=== PATIENT | female | born 2000 | race Two or more races ===

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

== ENCOUNTER 2020-01-26 18:15 | Emergency (ER) | payer OTHER ==
[~2020-01-26] VITALS: Ht 152.4 cm; Wt 56.7 kg
[~2020-01-26 18:15] MED LIST changes: +ANUSOL-HC30 GM RC; +OMEPRAZOLE20 M3 ORAL; +VISTARIL50 MG ORAL
[2020-01-26] MEDS ORDERED: Excedrin Migraine tab ORAL ONE (18:30)
[2020-01-26] MEDS ORDERED: DiphenhydrAMINE 50mg/ml Inj IVP ONE (18:30)
[2020-01-26 18:37] LABS: APPEARANCE,URINE CLEAR; BILIRUBIN, URINE NEGATIVE (NEGATIVE); COLOR,URINE PALE YELLOW; GLUCOSE, URINE (UA) NEGATIVE (NEGATIVE); KETONES,URINE NEGATIVE (NEGATIVE); LEUKOCYTE ESTERASE ,URINE 2+ (NEGATIVE); NITRITE,URINE NEGATIVE (NEGATIVE); PH,URINE 6 (4.5-8.0); PROTEIN,URINE NEGATIVE (NEGATIVE); UROBILINOGEN,URINE NORMAL MG/DL (0.0-1.0)
[2020-01-26 18:47] VITALS: BP 106/65
[2020-01-26 18:50] LABS: BASOPHILS % (AUTO) 1.5 % (0.0-2.0); EOSINOPHILS % (AUTO) 1.4 % (0.0-3.0); HEMATOCRIT 39.6 % (37.0-47.0); HEMOGLOBIN 13.3 G/DL (12.0-16.0); LYMPHOCYTES % (AUTO) 36.9 % (20.0-45.0); MEAN CORPUSCULAR VOLUME 89 FL (80-99); MONOCYTES % (AUTO) 6.7 % (1.0-10.0); NEUTROPHILS % (AUTO) 53.5 % (45.0-75.0); PLATELET COUNT 210 K/UL (150-450); RED BLOOD COUNT 4.45 M/UL (4.20-5.40); WHITE BLOOD COUNT 8.7 K/UL (4.8-10.8)
[2020-01-26 19:03] LABS: ANION GAP 10 mmol/L (5-15); BLOOD UREA NITROGEN 18 mg/dL (7-18); CALCIUM 8.8 MG/DL (8.5-10.1); CARBON DIOXIDE 27 MMOL/L (21-32); CHLORIDE 103 MMOL/L (98-107); SODIUM 140 MMOL/L (136-145)
[2020-01-26 19:06] LABS: ALANINE AMINOTRANSFERASE 23 U/L (12-78); ALBUMIN 3.9 G/DL (3.4-5.0); ALBUMIN/GLOBULIN RATIO 0.9 (1.0-2.7); ALKALINE PHOSPHATASE 73 U/L (46-116); ASPARTATE AMINO TRANSFERASE 19 U/L (15-37); BILIRUBIN,TOTAL 0.9 MG/DL (0.2-1.0)
[2020-01-26] MEDS ORDERED: Ketorolac 30mg Inj IV ONE (19:30)
--- NOTE | 2020-01-26 20:26 | Emergency Room Report ---
History of Present Illness General Chief Complaint: Headache Source: Patient Present Illness HPI 19-year-old female presents complaining of headache for the last 2 days. Points to the top of her head and states she has sharp pain, 8 out of 10, nonradiating. Denies photophobia or blurry vision. Denies nausea or vomiting. Denies neck stiffness. Denies any fall or injury. Took Tylenol and Aleve without relief. No other aggravating relieving factors. Denies any other associated symptoms Allergies: Coded Allergies: METOCLOPRAMIDE (Verified Allergy, Unknown, 03/20/19) PROCHLORPERAZINE (Verified Allergy, Unknown, 11/28/19) COVID-19 Screening Contact w/high risk pt: No Recent Travel to affected area: No Experienced COVID-19 symptoms?: No COVID-19 symptoms experienced: Shortness of Breath COVID-19 Testing performed OCCUPATIONAL MEDICINE PHYSICIAN: No Patient History Past Medical History: none Past Surgical History: none Pertinent Family History: none Social History: Denies: smoking, alcohol use, drug use Last Menstrual Period: 1 year ago Now: No : 1 Para: 1 Immunizations: UTD Reviewed Nursing Documentation: PMH: Agreed; PSxH: Agreed Nursing Documentation-PMH Past Medical History: No Stated History Hx Cardiac Problems: No Hx Gastrointestinal Problems: Yes - Kidney infection Hx Neurological Problems: No Review of Systems All Other Systems: negative except mentioned in HPI Physical Exam Vital Signs Date Time Temp Pulse Resp B/P (MAP) Pulse Ox O2 Delivery O2 Flow Rate FiO2 01/26/20 18:17 98.2 73 19 106/65 (79) 100 Room Air Sp02 EP Interpretation: reviewed, normal General Appearance: no apparent distress, alert, GCS 15, non-toxic Head: normocephalic, atraumatic Eyes: bilateral eye normal inspection, bilateral eye PERRL ENT: hearing grossly normal, normal pharynx, no angioedema, normal voice Neck: full range of motion, supple, no meningismus, supple/symm/no masses Respiratory: chest non-tender, lungs clear, normal breath sounds, speaking full sentences Cardiovascular #1: regular rate, rhythm, no edema Cardiovascular #2: 2+ carotid (R), 2+ carotid (L), 2+ radial (R), 2+ radial (L) , 2+ dorsalis pedis (R), 2+ dorsalis pedis (L) Gastrointestinal: normal bowel sounds, non tender, soft, non-distended, no guarding, no rebound Rectal: deferred Genitourinary: normal inspection, no CVA tenderness Musculoskeletal: back normal, normal range of motion, gait/station normal, non- tender Neurologic: alert, motor strength/tone normal, oriented x3, sensory intact, responsive, speech normal Psychiatric: judgement/insight normal, memory normal, mood/affect normal, no suicidal/homicidal ideation Reflexes: 3+ bicep (R), 3+ bicep (L), 3+ tricep (R), 3+ tricep (L), 3+ knee (R) , 3+ knee (L) Skin: no rash Lymphatic: no adenopathy Medical Decision Making Diagnostic Impression: Primary Impression: Headache Qualified Codes: R51 - Headache ER Course Hospital Course 19-year-old female presents to ED complaining of headaches Differential diagnoses include: tension headache, migraine, dehydration, intracranial bleed Clinical course Patient placed on stretcher. After initial history and physical I ordered labs , IV fluids, excedrin, benedryl Labs reviewed- electrolytes okay, no leukocytosis, hemoglobin/hematocrit stable , UA negative On reassessment patient continues to have pain. CT ordered. Given additional medications. CT negative. On reassessment symptoms improving. I discussed findings with patient. No focal deficits. No nuchal rigidity. No blurry vision. No nausea. Will discharge home. Patient is breast-feeding so medication options are limited. Recommend close follow-up with [facility]. I feel this is a highly complex case requiring extensive working including EKG/Rhythm strip, Xray/CT/US, Blood/urine lab work, repeat exams while in ED, and administration of strong opiates/narcotics for pain control, admission to hospital or close patient follow up. Diagnosis - headache stable and discharged to home with Rx Excedrin. f/up with PMD. return to ED if symptoms recur/worsen. Labs Test 01/26/20 18:29 01/26/20 18:39 Urine Color Pale yellow Urine Appearance Clear Urine pH 6 (4.5-8.0) Urine Specific [place] 1.015 (1.005-1.035) Urine Protein Negative (NEGATIVE) Urine Glucose (UA) Negative (NEGATIVE) Urine Ketones Negative (NEGATIVE) Urine Blood Negative (NEGATIVE) Urine Nitrite Negative (NEGATIVE) Urine Bilirubin Negative (NEGATIVE) Urine Urobilinogen Normal MG/DL (0.0-1.0) Urine Leukocyte Esterase 2+ (NEGATIVE) Urine RBC 0 /HPF (0 - 2) Urine WBC 5-10 /HPF (0 - 2) Urine Squamous Epithelial Cells Few /LPF (NONE/OCC) Urine Bacteria Few /HPF (NONE) Urine HCG, Qualitative Negative (NEGATIVE) White Blood Count 8.7 K/UL (4.8-10.8) Red Blood Count 4.45 M/UL (4.20-5.40) Hemoglobin 13.3 G/DL (12.0-16.0) Hematocrit 39.6 % (37.0-47.0) Mean Corpuscular Volume 89 FL (80-99) Mean Corpuscular Hemoglobin 29.8 PG (27.0-31.0) Mean Corpuscular Hemoglobin Concent 33.5 G/DL (32.0-36.0) Red Cell Distribution Width 12.0 % (11.6-14.8) Platelet Count 210 K/UL (150-450) Mean Platelet Volume 9.0 FL (6.5-10.1) Neutrophils (%) (Auto) 53.5 % (45.0-75.0) Lymphocytes (%) (Auto) 36.9 % (20.0-45.0) Monocytes (%) (Auto) 6.7 % (1.0-10.0) Eosinophils (%) (Auto) 1.4 % (0.0-3.0) Basophils (%) (Auto) 1.5 % (0.0-2.0) Sodium Level 140 MMOL/L (136-145) Potassium Level 4.0 MMOL/L (3.5-5.1) Chloride Level 103 MMOL/L (98-107) Carbon Dioxide Level 27 MMOL/L (21-32) Anion Gap 10 mmol/L (5-15) Blood Urea Nitrogen 18 mg/dL (7-18) Creatinine 1.0 MG/DL (0.55-1.30) Estimat Glomerular Filtration Rate > 60 mL/min (>60) Glucose Level 89 MG/DL (74-106) Calcium Level 8.8 MG/DL (8.5-10.1) Total Bilirubin 0.9 MG/DL (0.2-1.0) Aspartate Amino Transf (AST/SGOT) 19 U/L (15-37) Alanine Aminotransferase (ALT/SGPT) 23 U/L (12-78) Alkaline Phosphatase 73 U/L (46-116) Total Protein 8.1 G/DL (6.4-8.2) Albumin 3.9 G/DL (3.4-5.0) Globulin 4.2 g/dL Albumin/Globulin Ratio 0.9 (1.0-2.7) Lipase 171 U/L (73-393) CT/MRI/US Diagnostic Results CT/MRI/US Diagnostic Results : Imaging Test Ordered: CT Head Impression Procedure: CT Head no Contrast EXAM: CT Head Without Intravenous Contrast CLINICAL HISTORY: H/A TECHNIQUE: Axial computed tomography images of the head/brain without intravenous contrast. CTDI is 53 mGy and DLP is 992 mGy-cm. One or more of the following dose reduction techniques were used: automated exposure control, adjustment of the mA and/or kV according to patient size, use of iterative reconstruction technique. COMPARISON: No relevant prior studies available. FINDINGS: Brain: Unremarkable. No hemorrhage. No edema. Ventricles: Unremarkable. Bones/joints: Unremarkable. No acute fracture. Soft tissues: Unremarkable. Sinuses: Unremarkable as visualized. Mastoid air cells: Unremarkable as visualized. IMPRESSION: No acute intracranial abnormality. Last Vital Signs Date Time Temp Pulse Resp B/P (MAP) Pulse Ox O2 Delivery O2 Flow Rate FiO2 01/26/20 19:42 98.2 01/26/20 18:47 73 19 106/65 100 Room Air Status: improved Disposition: HOME, SELF-CARE Condition: Stable Scripts Aspirin/Acetaminophen/Caffeine (EXCEDRIN MIGRAINE CAPLET) 1 Each Tablet 1 EACH PO Q6HR for 7 Days, TAB Prov: Dane Fisher MD 01/26/20 Referrals: NON PHYSICIAN (PCP) Dane Fisher MD Jan 26, 2020 20:26
--- NOTE | 2020-01-26 20:30 | Diagnostic Imaging Report ---
EXAM: CT Head Without Intravenous Contrast CLINICAL HISTORY: H/A TECHNIQUE: Axial computed tomography images of the head/brain without intravenous contrast. CTDI is 53 mGy and DLP is 992 mGy-cm. One or more of the following dose reduction techniques were used: automated exposure control, adjustment of the mA and/or kV according to patient size, use of iterative reconstruction technique. COMPARISON: No relevant prior studies available. FINDINGS: Brain: Unremarkable. No hemorrhage. No edema. Ventricles: Unremarkable. Bones/joints: Unremarkable. No acute fracture. Soft tissues: Unremarkable. Sinuses: Unremarkable as visualized. Mastoid air cells: Unremarkable as visualized. IMPRESSION: No acute intracranial abnormality.
[2020-01-26] MEDS ORDERED: EXCEDRIN MIGRA1 EAC1 PO (20:46)
[2020-01-26 20:53] VITALS: BP 106/65
== END 2020-01-26 20:54 | disposition home or self-care (01) ==
LOC: EMR 18:52
DX: R51 Headache (principal); Z88.8 Allergy status to other drugs, medicaments and biological substances
CPT/HCPCS: 36415; 70450; 80053; 81003; 81025; 83690; 85025; 96361; 96374; 96375; J1200; J1885; J7030; Z7502; 99284

== ENCOUNTER 2020-05-29 18:31 | Emergency (ER) | payer OTHER ==
[~2020-05-29] VITALS: Ht 152.4 cm; Wt 58.1 kg
[~2020-05-29 18:31] MED LIST changes: +EXCEDRIN MIGRA1 EAC1 PO
[2020-05-29 18:37] VITALS: BP 140/82
--- NOTE | 2020-05-29 18:37 | NUR ---
ED Nurse Note: Pt walked in to ED from home c/o pain to left abdomen area x2 weeks. Pt states she had c section about 6 months ago. Denies nausea, vomiting, diarrhea. No fever/ chills. AAOx4, verbally responsive. No SOB, on room air. ERMD at bedside.
[2020-05-29] MEDS ORDERED: Acetaminophen 500mg (ES) tab ORAL ONE (18:45)
--- NOTE | 2020-05-29 19:02 | NUR ---
ED Nurse Note: US at bedside.
[2020-05-29 19:20] LABS: APPEARANCE,URINE CLEAR; BILIRUBIN, URINE NEGATIVE (NEGATIVE); COLOR,URINE PALE YELLOW; GLUCOSE, URINE (UA) NEGATIVE (NEGATIVE); KETONES,URINE NEGATIVE (NEGATIVE); LEUKOCYTE ESTERASE ,URINE NEGATIVE (NEGATIVE); NITRITE,URINE NEGATIVE (NEGATIVE); PH,URINE 7 (4.5-8.0); PROTEIN,URINE NEGATIVE (NEGATIVE); UROBILINOGEN,URINE NORMAL MG/DL (0.0-1.0)
--- NOTE | 2020-05-29 19:29 | Diagnostic Imaging Report ---
EXAM: US Pelvis Transabdominal, Complete CLINICAL HISTORY: ABD PAIN. Left adnexal pain TECHNIQUE: Real-time complete transabdominal pelvic ultrasound with image documentation. COMPARISON: 08/04/19 OB ultrasound. The prior report is not available for review. FINDINGS: Limitations: Transabdominal images only were submitted for evaluation as the patient refused a transvaginal exam. This limits evaluation. Uterus/cervix: The uterus is grossly unremarkable and measures 5.7 x 4. 0 x 4.9 cm. The endometrial stripe measures 2 mm. No myometrial mass. Right ovary: The right ovary is grossly unremarkable and measures 3.2 x 1.8 x 3.6 cm. The right ovary demonstrates vascular flow. Left ovary: The left ovary is grossly unremarkable and measures 2.6 x 2.7 x 2.1 cm. The left ovary demonstrates vascular flow. Free fluid: No evidence for free fluid or adnexal mass. Bladder: The bladder is not well-visualized. IMPRESSION: Unremarkable transabdominal pelvic ultrasound.
[2020-05-29] MEDS ORDERED: TYLENOL EXTRA500 MG ORAL (19:50)
[2020-05-29 19:56] VITALS: BP 135/74
--- NOTE | 2020-05-29 19:56 | NUR ---
ED Nurse Note: Pt cleared by ERMD for discharge. DC instructions was given and explained to pt and verbalized understanding of teachings. prescription sent electronically to the pharmacy of choice. All medical deviecs such as ID band removed. Pt is AAO x4, ambulatory and left with all personal belongings.
--- NOTE | 2020-06-03 13:53 | Emergency Room Report ---
History of Present Illness General Chief Complaint: Abdominal Pain Source: Patient Present Illness HPI 19-year-old female presents for evaluation. States that she has pain over her site. States she has had this 6 months ago but is having on and off pain since. Has not been able to follow-up with her DO[facility] [employer]TAIN. Pain is burning, 8 out of 10, nonradiating. Denies vaginal bleeding or discharge. Denies nausea or vomiting. Denies fevers or chills. No other aggravating relieving factors. Denies any other associated symptoms Allergies: Coded Allergies: METOCLOPRAMIDE (Verified Allergy, Unknown, 03/20/19) PROCHLORPERAZINE (Verified Allergy, Unknown, 11/28/19) COVID-19 Screening Contact w/high risk pt: No Recent Travel to affected area: No Experienced COVID-19 symptoms?: No COVID-19 symptoms experienced: Shortness of Breath COVID-19 Testing performed CAP COVERER: No Patient History Past Medical History: none Past Surgical History: Pertinent Family History: none Social History: Denies: smoking, alcohol use, drug use Last Menstrual Period: 05/09/20 Now: No Immunizations: UTD Reviewed Nursing Documentation: PMH: Agreed; PSxH: Agreed Nursing Documentation-PMH Past Medical History: No History, Except For Hx Cardiac Problems: No Hx Gastrointestinal Problems: Yes - Kidney infection Hx Neurological Problems: No Review of Systems All Other Systems: negative except mentioned in HPI Physical Exam Sp02 EP Interpretation: reviewed, normal General Appearance: no apparent distress, alert, GCS 15, non-toxic Head: normocephalic, atraumatic Eyes: bilateral eye normal inspection, bilateral eye PERRL ENT: hearing grossly normal, normal pharynx, no angioedema, normal voice Neck: full range of motion, supple/symm/no masses Respiratory: chest non-tender, lungs clear, normal breath sounds, speaking full sentences Cardiovascular #1: regular rate, rhythm, no edema Cardiovascular #2: 2+ carotid (R), 2+ carotid (L), 2+ radial (R), 2+ radial (L), 2+ dorsalis pedis (R), 2+ dorsalis pedis (L) Gastrointestinal: normal bowel sounds, soft, non-distended, no guarding, no rebound, other - Healing scar noted suprapubic. No erythema or induration. Tender in left side Rectal: deferred Genitourinary: normal inspection, no CVA tenderness Musculoskeletal: back normal, normal range of motion, gait/station normal, non- tender Neurologic: alert, motor strength/tone normal, oriented x3, sensory intact, responsive, speech normal Psychiatric: judgement/insight normal, memory normal, mood/affect normal, no suicidal/homicidal ideation Reflexes: 3+ bicep (R), 3+ bicep (L), 3+ tricep (R), 3+ tricep (L), 3+ knee (R), 3+ knee (L) Lymphatic: no adenopathy Medical Decision Making Diagnostic Impression: Primary Impression: Pain at surgical site ER Course Hospital Course 19-year-old female presents with pain over surgical site status post 6 months ago Differential diagnosis includes-ectopic , cellulitis, abscess Clinical course Patient placed on stretcher. After initial history and physical I ordered labs, IV fluids, pain medications and US Labs - no leukocytosis, electrolytes ok, LFTs normal, UA unremarkable Pelvic ultrasound shows no acute process Discussed findings with patient. Explained there is no acute finding to explain her symptoms. Patient has had recurrent pain like this numerous times since the . I recommend close follow-up with her DO[employer]TAIN. I feel this is a highly complex case requiring extensive working including EKG/Rhythm strip, Xray/CT/US, Blood/urine lab work, repeat exams while in ED, and administration of strong opiates/narcotics for pain control, admission to hospital or close patient follow up. Diagnosis -pain at surgical site Stable and discharged to home. Followup with PMD/DOOR CAPTAIN. Return to ED if sym ptoms recur or worsen Labs Test 05/29/20 18:55 Urine Color Pale yellow Urine Appearance Clear Urine pH 7 (4.5-8.0) Urine Specific [place] 1.010 (1.005-1.035) Urine Protein Negative (NEGATIVE) Urine Glucose (UA) Negative (NEGATIVE) Urine Ketones Negative (NEGATIVE) Urine Blood Negative (NEGATIVE) Urine Nitrite Negative (NEGATIVE) Urine Bilirubin Negative (NEGATIVE) Urine Urobilinogen Normal MG/DL (0.0-1.0) Urine Leukocyte Esterase Negative (NEGATIVE) Urine HCG, Qualitative Negative (NEGATIVE) CT/MRI/US Diagnostic Results CT/MRI/US Diagnostic Results : Imaging Test Ordered: pelvic ultrasound Impression Procedure: US Pelvic Transabdominal EXAM: US Pelvis Transabdominal, Complete CLINICAL HISTORY: ABD PAIN. Left adnexal pain TECHNIQUE: Real-time complete transabdominal pelvic ultrasound with image documentation. COMPARISON: 08/04/19 OB ultrasound. The prior report is not available for review. FINDINGS: Limitations: Transabdominal images only were submitted for evaluation as the patient refused a transvaginal exam. This limits evaluation. Uterus/cervix: The uterus is grossly unremarkable and measures 5.7 x 4. 0 x 4.9 cm. The endometrial stripe measures 2 mm. No myometrial mass. Right ovary: The right ovary is grossly unremarkable and measures 3.2 x 1.8 x 3.6 cm. The right ovary demonstrates vascular flow. Left ovary: The left ovary is grossly unremarkable and measures 2.6 x 2.7 x 2.1 cm. The left ovary demonstrates vascular flow. Free fluid: No evidence for free fluid or adnexal mass. Bladder: The bladder is not well-visualized. IMPRESSION: Unremarkable transabdominal pelvic ultrasound. Status: improved Disposition: HOME, SELF-CARE Condition: Stable Scripts Acetaminophen* (TYLENOL EXTRA STRENGTH*) 500 Mg Tablet 500 MG ORAL Q8H PRN for Prn Headache/Temp > 101, #30 TAB 0 Refills Prov: Dane Fisher MD 05/29/20 Patient Instructions: Groin Surgical Site Care Additional Instructions: you need to followup with your OBGYN who performed the Csection Dane Fisher MD Jun 03, 2020 13:53
== END 2020-05-29 19:56 | disposition home or self-care (01) ==
LOC: EMR 18:55
DX: G89.18 Other acute postprocedural pain (principal); Z88.8 Allergy status to other drugs, medicaments and biological substances
CPT/HCPCS: 76856; 81003; 81025; Z7502; 99284

== ENCOUNTER 2020-09-21 20:12 | Emergency (ER) | payer OTHER ==
[~2020-09-21] VITALS: Ht 154.9 cm; Wt 56.7 kg
--- NOTE | 2020-09-21 20:29 | NUR ---
ED Nurse Note: pt walked into the ed due to upper back pain x 3day . Pt stated; she feel the pain in certain movement and sometimes when she breath. denies SOB, denies fever chills, or chest tightness. Vitals are stable. mark trauma and fall. Pt stated; she had baby a month ago.
[2020-09-21 20:32] VITALS: BP 111/67
[2020-09-21] MEDS ORDERED: Methocarbamol 750mg tab ORAL ONE (20:45)
--- NOTE | 2020-09-21 21:19 | Emergency Room Report ---
History of Present Illness General Chief Complaint: Back Pain-No Injury Source: Patient Present Illness HPI 19-year-old female with upper back pain which is referring to as" my leg pain." Patient reports that she had a baby 10 months ago and ever since that she has been short of breath upper back pain. Patient has been seen by primary doctor and has a pending CT scan done. Patient reports that the shortness of breath is intermittent and has been ongoing for the past 10 months. Patient denies any recent surgeries, has an nonsedentary lifestyle, denies tobacco smoke. At this time suspicion of PE is low as it has been ongoing 10 months without progression. Nausea vomiting headache and symptoms. Denies . Denies fall or injury or lifting objects. Allergies: Coded Allergies: METOCLOPRAMIDE (Verified Allergy, Unknown, 03/20/19) PROCHLORPERAZINE (Verified Allergy, Unknown, 11/28/19) COVID-19 Screening Contact w/high risk pt: No Recent Travel to affected area: No Experienced COVID-19 symptoms?: No COVID-19 symptoms experienced: Shortness of Breath COVID-19 Testing performed [facility]: Yes - August COVID-19 Screening: Negative COVID-19 COVID-19 Testing Source: unknown Patient History Past Medical History: see triage record Past Surgical History: none Pertinent Family History: none Last Menstrual Period: August Now: No : 1 Para: 1 Reviewed Nursing Documentation: PMH: Agreed; PSxH: Agreed Nursing Documentation-PM Past Medical History: No Stated History Hx Cardiac Problems: No Hx Gastrointestinal Problems: Yes - Kidney infection Hx Neurological Problems: No Review of Systems All Other Systems: negative except mentioned in HPI Physical Exam Vital Signs Date Time Temp Pulse Resp B/P (MAP) Pulse Ox O2 Delivery O2 Flow Rate FiO2 09/21/20 20:16 98.1 84 18 111/67 (82) 97 Room Air Sp02 EP Interpretation: reviewed, normal General Appearance: no apparent distress, alert, GCS 15, non-toxic Head: normocephalic, atraumatic Eyes: bilateral eye normal inspection, bilateral eye PERRL ENT: hearing grossly normal, normal pharynx, no angioedema, normal voice Neck: full range of motion, supple/symm/no masses Respiratory: chest non-tender, lungs clear, normal breath sounds, no rhonchi, no respiratory distress, no retraction, speaking full sentences Cardiovascular #1: regular rate, rhythm, no edema, no murmur Cardiovascular #2: 2+ carotid (R), 2+ carotid (L), 2+ radial (R), 2+ radial (L), 2+ dorsalis pedis (R), 2+ dorsalis pedis (L) Gastrointestinal: normal bowel sounds, non tender, soft, non-distended, no guarding, no rebound Rectal: deferred Genitourinary: no CVA tenderness Musculoskeletal: back normal, no calf tenderness, no lower extremity edema, non-tender Neurologic: alert, motor strength/tone normal, oriented x3, sensory intact, responsive, speech normal Psychiatric: judgement/insight normal, memory normal, mood/affect normal, no suicidal/homicidal ideation Skin: no rash Lymphatic: no adenopathy Medical Decision Making PA Attestation All my diagnosis and treatment plans were reviewed ad discussed with my supervising physician Dr. Fisher Diagnostic Impression: Primary Impression: Thoracic myofascial strain ER Course 19-year-old female with upper back pain which is referring to as" my leg pain." Patient reports that she had a baby 10 months ago and ever since that she has been short of breath upper back pain. Patient has been seen by primary doctor and has a pending CT scan done. Patient reports that the shortness of breath is intermittent and has been ongoing for the past 10 months. Patient denies any recent surgeries, has an nonsedentary lifestyle, denies tobacco smoke. At this time suspicion of PE is low as it has been ongoing 10 months without progression. Nausea vomiting headache and symptoms. Denies . Denies fall or injury or lifting objects. Ddx considered but are not limited to : thoracic spine fracture, thoracic spine strain, thoracic spine sprain, radiculopathy.PE, PNA Vital signs: are WNL, pt. is afebrile H&PE are most consistent with: thoracic strain ORDERS: Chest x-ray, Robaxin, Motrin ED INTERVENTIONS: Robaxin Patient had taken Advil prior to arrival DISCHARGE: At this time pt. is stable for d/c to home. Will provide printed patient care instructions, and any necessary prescriptions. Care plan and follow up instructions have been discussed with the patient prior to discharge. Advised patient to follow primary doctor, further evaluation such as CT scan may be needed, at this time no acute CTA chest needed patient has been having this pain and shortness of breath for the past 10 months. Suspicion of PE is low at this time. Advised patient to return to the emergency room if worsening symptoms. Other X-Ray Diagnostic Results Other X-Ray Diagnostic Results : X-Ray ordered: CXR # of Views/Limited Vs Complete: 1 View Indication: Pain EP Interpretation: Yes PA Xray: Interpretation reviewed, by supervising MD, and agrees with findings. Interpretation: no dislocation, no soft tissue swelling, no fractures Impression: No acute disease Electronically Signed by: Lele He PA-C Last Vital Signs Date Time Temp Pulse Resp B/P (MAP) Pulse Ox O2 Delivery O2 Flow Rate FiO2 09/21/20 20:32 98.1 18 111/67 97 Room Air 09/21/20 20:16 84 Disposition: HOME, SELF-CARE Condition: Stable Referrals: [facility],REFERRING (PCP) Patient Instructions: Thoracic Strain, [id number] Additional Instructions: At this time pt. is stable for d/c to home. Will provide printed patient care instructions, and any necessary prescriptions. Care plan and follow up instructions have been discussed with the patient prior to discharge. Advised patient to follow primary doctor, further evaluation such as CT scan may be needed, at this time no acute CTA chest needed patient has been having this pain and shortness of breath for the past 10 months. Suspicion of PE is low at this time. Advised patient to return to the emergency room if worsening symptoms. Lele Campbell Sep 21, 2020 21:19
[2020-09-21] MEDS ORDERED: IBUPROFEN600 M1 ORAL (21:35)
[2020-09-21] MEDS ORDERED: ROBAXIN-500MG ORAL (21:35)
[2020-09-21 21:50] VITALS: BP 111/67
--- NOTE | 2020-09-21 21:50 | NUR ---
ER DISCHARGE NOTE: Patient is cleared to be discharged per ERMD, pt is aox4, on room air, with stable vital signs. pt was given dc and prescription instructions, pt was able to verbalize understanding, pt id band removed without complications. pt is able to ambulate with steady gait. pt took all belongings.
--- NOTE | 2020-09-22 18:57 | Diagnostic Imaging Report ---
Indication: Shortness of breath Technique: One view of the chest Comparison: none Findings: Lungs and pleural spaces are clear. Heart size is normal. No significant change Impression: No acute process
== END 2020-09-21 21:50 | disposition home or self-care (01) ==
LOC: EMR 20:45
DX: S29.012A Strain of muscle and tendon of back wall of thorax, initial encounter (principal); X58.XXXA Exposure to other specified factors, initial encounter; Y92.9 Unspecified place or not applicable; Z88.8 Allergy status to other drugs, medicaments and biological substances; R06.02 Shortness of breath
CPT/HCPCS: 71045; Z7502; 99283